=== PATIENT | male | born 1945 | race Caucasian/White ===

== ENCOUNTER → 2024-01-07 11:11 | Outpatient (REF) | payer MEDICARE, SELFPAY | LOC: DHCBS MAIN 11:11 | PROVIDERS: ATTENDING PHYSICIAN Internal Medicine Cardiovascular Disease; FAMILY PHYSICIAN Family Medicine | DX: I48.0 Paroxysmal atrial fibrillation (principal) | CPT/HCPCS: 93306 ==

== ENCOUNTER → 2024-02-04 06:26 | Day surgery (SDC) | payer MEDICARE, SELFPAY | LOC: GI 06:26 | PROVIDERS: ATTENDING PHYSICIAN Internal Medicine Gastroenterology; FAMILY PHYSICIAN Family Medicine | DX: Z12.11 Encounter for screening for malignant neoplasm of colon (principal); K64.8 Other hemorrhoids; D12.5 Benign neoplasm of sigmoid colon; D12.3 Benign neoplasm of transverse colon; Z86.010 Personal history of colon polyps | CPT/HCPCS: 45385; 45380; 88305 ==

== ENCOUNTER → 2024-06-08 14:21 | Outpatient (REF) | payer MEDICARE, SELFPAY | LOC: RAD 14:21 | PROVIDERS: ATTENDING PHYSICIAN Family Medicine | DX: M79.672 Pain in left foot (principal) | CPT/HCPCS: 73650 ==

== ENCOUNTER → 2024-08-22 08:54 | Outpatient (REF) | payer MEDICARE, SELFPAY | LOC: RAD 08:54 | PROVIDERS: ATTENDING PHYSICIAN Surgery Vascular Surgery; FAMILY PHYSICIAN Family Medicine | DX: I77.1 Stricture of artery (principal) | CPT/HCPCS: 76770 ==

== ENCOUNTER → 2024-09-13 14:07 | Outpatient (REF) | payer MEDICARE, SELFPAY | LOC: HWRAD 14:07 | PROVIDERS: ATTENDING PHYSICIAN Internal Medicine Gastroenterology; FAMILY PHYSICIAN Family Medicine | DX: R68.81 Early satiety (principal); R10.11 Right upper quadrant pain | CPT/HCPCS: 76700 ==

== ENCOUNTER → 2024-10-04 09:09 | Outpatient (REF) | payer MEDICARE, SELFPAY | LOC: HWRAD 09:09 | PROVIDERS: ATTENDING PHYSICIAN Internal Medicine Gastroenterology; FAMILY PHYSICIAN Family Medicine | DX: R68.81 Early satiety (principal); R10.13 Epigastric pain; R63.4 Abnormal weight loss | CPT/HCPCS: 74177; Q9967 ==

== ENCOUNTER → 2024-10-17 10:42 | Outpatient (REF) | payer MEDICARE, SELFPAY | LOC: RAD 10:42 | PROVIDERS: ATTENDING PHYSICIAN Family Medicine | DX: M85.89 Other specified disorders of bone density and structure, multiple sites (principal) | CPT/HCPCS: 77080 ==

== ENCOUNTER 2025-02-02 13:47 | Emergency (ER) | payer MEDICARE, SELFPAY ==
[2025-02-02 13:52] VITALS: BP 128/63
[2025-02-02 14:05] LABS: % Basophils 0.8 % (0-2); % Eosinophils 1.6 % (0-6); % Immature Granulocytes 0.4 % (0-0.5); % Lymphocytes 22.6 % (20.5-51.1); % Monocytes 10.2 % (1.7-9.3); % Neutrophils 64.4 % (42.2-75.2); Absolute Eosinophils 0.1 10^3/uL (0-0.7); Absolute Lymphocytes 1.1 10^3/uL (1.2-3.4); Absolute Monocytes 0.5 10^3/uL (0.1-0.6); Absolute Neutrophils 3.2 10^3/uL (1.4-6.5); Hematocrit 42.1 % (39.0-52.0); Hemoglobin 14.2 g/dL (13.0-18.0); Mean Corp Hgb Conc. 33.7 g/dL (33.0-37.0); Mean Corpuscular Hgb 32.6 pg (27.0-31.0); Mean Corpuscular Volume 96.6 fL (80.0-94.0); Mean Platelet Volume 10.4 fL (7.4-10.4); Nucleated Red Blood Cells % 0 % (-); Platelet Count 182 10^3/uL (130-400); Red Blood Cell Count 4.36 10^6/uL (4.70-6.10); Red Cell Dist. Width 13.2 % (11.5-14.5)
[2025-02-02 14:19] LABS: ALT (SGPT) 23 U/L (0-50); AST (SGOT) 25 U/L (17-59); Albumin 4.1 g/dl (3.5-5.0); Alkaline Phosphatase 70 U/L (38-126); Blood Urea Nitrogen 18 mg/dl (9-20); Calcium 9.4 mg/dl (8.4-10.2); Carbon Dioxide 29 mmol/L (22-30); Chloride 105 mmol/L (98-107); Glucose 124 mg/dl (70-99); Potassium 3.8 mmol/L (3.5-5.1); Sodium 140 mmol/L (135-145); Total Bilirubin 0.9 mg/dl (0.2-1.3); Total Protein 6.6 g/dl (6.3-8.2); eGFR > 60.00
--- NOTE | 2025-02-02 14:26 | ED.GENMED ---
History of Present Illness
General
Chief Complaint: Heart Rate Problem
Source: patient
Exam Limitations: none
Time Seen by Provider: 02/02/25 14:19
History of Present Illness
History of Present Illness:
See MDM
Past History
Past History
ED Past Medical History: Arrthythmia and Hypercholesterolemia
ED Past Surgical History: Cardiac
Social History
Tobacco: Non-smoker (Atrial fibrillation)
Alcohol: None
Drug: None
Personal:
Living: with family
Phy Exam
Physical Exam
Physical Exam:
See MDM
Course
Orders/Labs/Results
Orders:
Orders
02/02/25 13:48
Electrocardiogram (*1) Urgent
Reason for Study: Palpitations
EKG- Treatment ONCE
02/02/25 14:00
Complete Blood Count/With Diff Urgent
Comprehensive Metabolic Panel Urgent
TSH Reflex To Free T4 Urgent
Abnormal Lab Results
02/02/25
14:00
RBC 4.36 L 10^6/uL
(4.70-6.10)
MCV 96.6 H fL
(80.0-94.0)
MCH 32.6 H pg
(27.0-31.0)
Absolute Lymphs (auto) 1.1 L 10^3/uL
(1.2-3.4)
Monocytes % 10.2 H %
(1.7-9.3)
Glucose 124 H mg/dl
(70-99)
02/02/25 14:00
02/02/25 14:00
Vital Signs
Initial and Last Documented VS:
Initial Vital Signs
Temp Pulse Resp BP Pulse Ox
98.1 F 94 18 128/63 97
02/02/25 13:52 02/02/25 13:52 02/02/25 13:52 02/02/25 13:52 02/02/25 13:52
Last Documented Vital Signs
Temp Pulse Resp BP Pulse Ox
98.1 F 72 19 128/63 99
02/02/25 13:52 02/02/25 14:30 02/02/25 14:30 02/02/25 13:52 02/02/25 14:30
MDM/Problems Addressed
Differential Diagnosis Includes:
HPI and MDM Narrative:
79-year-old male presenting for evaluation of intermittent palpitations. This has progressed over the past several days. Patient was worried because he had an episode today lasting several hours. This reminds him of the sensation he felt when he
was in A-fib. He did have a cardiac ablation 7 years ago and follows with Dr. Kimble. He understands that the A-fib may return. Because he has been in sinus rhythm since the ablation, he is on metoprolol as needed. He took 25 mg prior to
arrival due to the symptoms. Patient now in a sinus rhythm and states he is feeling somewhat better. Will continue to monitor on telemetry. Basic blood work was ordered showing no significant abnormalities
Physical exam
General: Well appearing and non-toxic
HEENT: protecting airway
Neck: appears supple
CV: No evidence of cyanosis. Regular rate and rhythm
Resp: No accessory muscle use
Abd: Non-distended
Extremities: No deformities
Neuro: alert
Psych: Normal affect
Skin: Intact
Problems Addressed including Acute and Chronic Conditions affecting care:
1. Intermittent palpitations
Acuity: acute
Prognosis: stable
Details: Patient currently in sinus rhythm. Will discuss case with cardiology and suggest taking metoprolol daily until evaluated by his beer brewer
Updates
Patient has remained in sinus rhythm during his emergency department stay. Case discussed with cardiology who agrees with starting metoprolol daily instead of as needed. He indicated that he will have office set up outpatient Holter monitor
Differential Diagnosis (but not limited to): Palpitations, A-fib, SVT
Testing considered: Troponin
Drug therapy (if applicable): OTC meds, please see d/c instruction regarding Rx drugs
Amount and/or Complexity of Data Reviewed
Clinical info obtained from: Patient
External data reviewed: N/A
Labs I independently reviewed (but not limited to): Electrolytes normal
Radiology: N/A
Pulse Ox: not hypoxic
EKG independently reviewed: Sinus rhythm, normal axis, no STEMI
Yarn Inspector: Sinus rhythm
Critical Care: N/A
Risk of Complication:
Social Determinants of health: Good social support
Discussed with other providers: Cardiology
Escalation of Care includes Admit/Obs: After being observed in the Emergency Department, pt stable for discharge.
Occasional wrong word or 'sound a like' substitutions may have occurred due to the inherent limitations of voice recognition software. Read the chart carefully and recognize, using context, where substitutions have occurred.
*Critical Care Note
Total Time (30-74mins, 75-104mins- exclusive of procedures): Not Applicable
ED Attending Note
-
Portions of this chart may have been created with voice recognition software.� Occasional wrong word or��sound alike� substitutions may have occurred due to the inherent limitations of voice recognition software.
Discharge Plan
Departure
Patient Disposition: Home (Routine Discharge)
Date of Disposition: 02/02/25
Time of Disposition: 15:21
Patient with high blood pressure during this ER visit?: No
Discharge Problem:
Heart palpitations
Instructions: Palpitations (DC), Chest Pain DCA Follow Up
Prescriptions:
No Action
atorvastatin 20 MG tablet
20 mg PO HS
naproxen sodium [Aleve] 220 MG tablet
220 mg PO DAILYPRN PRN (Reason: pain)
zolpidem 10 MG tablet
5 mg PO HSPRN PRN (Reason: insomnia)
[id number] serr [Osteo Bi-Flex (5-Loxin)] 1 EACH tablet
2 ea PO DAILY
acyclovir 1 APPLIC ointment
0 applic topical 5/D PRN (Reason: cold sores)
acyclovir 200 MG capsule
200 mg PO QIDPRN PRN (Reason: cold sores)
metoprolol tartrate 25 MG tablet
25 mg PO Q6 PRN (Reason: palpitations) Qty: 1 0RF
rivaroxaban [Xarelto] 20 MG tablet
20 mg PO QPM Qty: 90 0RF
Referrals:
Fermin Gamino DO [Family Provider] -
Activity Restrictions/Additional Instructions:
Please return for any worsening symptoms.
You may return at any time if you have further concerns.
The beer brewer agrees that this could be recurrent A-fib. Instead of taking metoprolol only as needed, please start taking it daily until told otherwise by Dr. Kimble. Cardiology indicated that the office will work on setting you up with a
Holter monitor.
You were placed on the cardiac callback tracker. Someone from their office should call you in the next few days. If you do not hear from them in the next few days, please give them a call.
Thank you for choosing [facility].
Interventions
Interventions:
*Risk Screen - Suicide Last Done: 02/02/25 13:52
*General Assessment Last Done: 02/02/25 13:52
*Neglect/Abuse Screening Last Done: 02/02/25 13:52
*ED COVID-19 Vaccine History Last Done: 02/02/25 13:52
ED- Cardiac Assessment Last Done: 02/02/25 14:32
ED- Pulmonary Assessment Last Done: 02/02/25 14:32
Discharge Date and Time
Print Language: ARABIC
[2025-02-02 14:50] LABS: TSH Reflex To Free T4 1.68 uIU/ml (0.47-4.68)
[2025-02-02 15:00] VITALS: BP 114/68
== END 2025-02-02 15:41 | disposition home or self-care (01) ==
LOC: EMR 13:47
PROVIDERS: Emergency Medicine; EMERGENCY PHYSICIAN Student in an Organized Health Care Education/Training Program; FAMILY PHYSICIAN Family Medicine
DX: R00.2 Palpitations (principal)
CPT/HCPCS: 99284; 80053; 84443; 85025; 93005